=== PATIENT | male | born 1955 | race Caucasian/White ===

== ENCOUNTER 2025-06-06 11:38 | Inpatient (IN) | payer MEDICARE ==
[~2025-06-06] VITALS: Ht 185.4 cm; Wt 118.2 kg
[2025-06-06] MEDS ORDERED: ONDANSETRON HCL/PF 4 MG/2 ML VIAL ONE (11:52)
[2025-06-06] MEDS ORDERED: MORPHINE SULFATE INJ 4 MG/ML DISP.SYRIN ONE (11:52)
[2025-06-06] MEDS: MORPHINE SULFATE INJ 2 MG/ML DISP.SYRIN IV ONE (11:57)
[2025-06-06] MEDS: ONDANSETRON HCL/PF 4 MG/2 ML VIAL IVP ONE (12:26)
[2025-06-06] MEDS ORDERED: FENTANYL PF 100MCG/2ML AMPUL ONE (12:44)
[2025-06-06] MEDS: FENTANYL PF 100MCG/2ML AMPUL IV ONE (12:55)
[2025-06-06] MEDS: PROPOFOL 200 MG/20 ML VIAL IV ONE ×2 (13:52→13:55)
[2025-06-06] MEDS: KETAMINE HCL (500MG/10ML) 50 MG/ML VIAL IV ONE (14:04)
[2025-06-06 15:16] LABS: PLATELET COUNT (AUTO) 223 K/uL (150-450); RED BLOOD CELL COUNT(AUTO) 5.25 MIL/uL (4.5-6.0); RED CELL DISTRIBUTION WIDTH 13.4 % (11.5-15.0); WHITE BLOOD COUNT (AUTO) 16.0 K/uL (4.3-11.0)
[2025-06-06 15:20] LABS: CALCIUM, SERUM 9.0 mg/dL (8.5-10.1); CREATININE 1.2 mg/dL (0.6-1.3); SODIUM SERUM 142.0 mmol/L (136-145); UREA NITROGEN, BLOOD 20.0 mg/dL (7-18)
[2025-06-06 15:30] LABS: INR 1.02 (0.91-1.10)
[2025-06-06] MEDS ORDERED: ACETAMINOPHEN 325 MG TABLET PO PRN (16:30)
[2025-06-06] MEDS ORDERED: ONDANSETRON HCL/PF 4 MG/2 ML VIAL IVP PRN (16:30)
[2025-06-06] MEDS ORDERED: MAGNESIUM HYDROXIDE 30 ML UDC PO PRN (16:30)
[2025-06-06] MEDS ORDERED: MAG HYDROX/AL HYDROX/SIMETH 30 ML UDC PO PRN (16:30)
[2025-06-06] MEDS: HYDROCODONE/APAP 5/325MG TABLET PO ONE (16:45)
[2025-06-06] MEDS ORDERED: MIRT-121 PO (17:55)
[2025-06-06] MEDS ORDERED: NARA2.5T2 PO (17:55)
[2025-06-06] MEDS ORDERED: PREG300C PO (17:55)
[2025-06-06] MEDS ORDERED: PANT40TA2 PO (17:55)
[2025-06-06] MEDS ORDERED: QUET50TA PO (17:55)
[2025-06-06] MEDS ORDERED: ATOR40TA (17:55)
[2025-06-06] MEDS ORDERED: OXYC15TA2 PO (17:55)
[2025-06-06] MEDS ORDERED: FLUO60SO2 EACH EAR (17:55)
[2025-06-06] MEDS ORDERED: LOSA25TA27 PO (17:55)
[2025-06-06] MEDS ORDERED: BUDE10.2 IH (17:55)
[2025-06-06] MEDS ORDERED: TIOT4MIS3 IH (17:55)
[2025-06-06] MEDS ORDERED: BUSP30TA2 PO (17:55)
[2025-06-06] MEDS ORDERED: ALBU18HF2 IH (17:55)
[2025-06-06] MEDS ORDERED: PRISTIQ PO (17:55)
[2025-06-06] MEDS: IV D5/0.45 NACL 1,000 ML IV SCH (18:04)
[2025-06-06] MEDS: HYDROMORPHONE 1 MG/1 ML DISP.SYRIN IV PRN (18:05)
[2025-06-06 20:00] VITALS: BP 146/96; TEMP 98.4; O2SAT 97
[2025-06-06 20:43] VITALS: BP 146/96; TEMP 98.4; O2SAT 97
[2025-06-07] VITALS (15 sets, daily range): BP systolic 124–158; BP diastolic 77–100; TEMP 97.7–99; O2SAT 94–98
[2025-06-07 06:39] LABS: ASPARTATE AMINOTRANSFERASE 49.0 U/L (15-37); CALCIUM, SERUM 8.5 mg/dL (8.5-10.1); CREATININE 1.1 mg/dL (0.6-1.3); PHOSPHORUS 4.3 mg/dL (2.5-4.9); SODIUM SERUM 139.0 mmol/L (136-145); TOTAL PROTEIN, SERUM 6.6 g/dL (6.4-8.2); UREA NITROGEN, BLOOD 14.0 mg/dL (7-18)
[2025-06-07 06:40] LABS: PLATELET COUNT (AUTO) 180 K/uL (150-450); RED BLOOD CELL COUNT(AUTO) 5.10 MIL/uL (4.5-6.0); RED CELL DISTRIBUTION WIDTH 13.3 % (11.5-15.0); WHITE BLOOD COUNT (AUTO) 10.2 K/uL (4.3-11.0)
[2025-06-07 06:46] LABS: LDL 69.0 mg/dL (0-99)
[2025-06-07 06:50] LABS: INR 1.04 (0.91-1.10)
[2025-06-07] MEDS: PANTOPRAZOLE 40 MG VIAL IV SCH (08:11)
[2025-06-07] MEDS ORDERED: ALBUTEROL FS 2.5 MG/3 ML VIAL.NEB NEB PRN (11:30)
[2025-06-07] MEDS ORDERED: NARATRIPTAN HCL 2.5 MG PO PRN (11:30)
[2025-06-07] MEDS ORDERED: oxyCODONE IR immediate release 5 MG TABLET PO PRN (11:30)
[2025-06-07] MEDS ORDERED: FENTANYL PF 100MCG/2ML AMPUL ONE ×2 (14:25→14:26)
[2025-06-07] MEDS ORDERED: ROCURONIUM BROMIDE 50 MG/5 ML ONE (14:26)
[2025-06-07] MEDS ORDERED: TRANEXAMIC ACID 1,000 MG/10 ML VIAL ONE (15:38)
[2025-06-07] MEDS ORDERED: BUPIVACAINE 0.5 % PF 150 MG/30 ML VIAL ONE (16:04)
[2025-06-07] MEDS ORDERED: SUGAMMADEX SODIUM 200 MG/2 ML VIAL IV ONE (16:19)
[2025-06-07] MEDS ORDERED: PANTOPRAZOLE 40 MG TABLET.DR PO SCH (17:00)
[2025-06-07] MEDS: PREGABALIN 100 MG CAPSULE PO SCH (17:45)
[2025-06-07] MEDS: ALBUTEROL FS 2.5 MG/3 ML VIAL.NEB NEB SCH (20:15)
[2025-06-07] MEDS: MIRTAZAPINE 15 MG TABLET PO SCH (22:07)
[2025-06-07] MEDS: QUETIAPINE FUMARATE 25 MG TABLET PO SCH (22:07)
[2025-06-07] MEDS: ATORVASTATIN 40 MG TABLET PO SCH (22:07)
[2025-06-07] MEDS: CEFAZOLIN 2 GM in IV D5W 100 ML IV SCH (22:08)
[2025-06-07] MEDS: IV D5/0.45 NACL 1,000 ML IV PRN (22:21)
[2025-06-08] VITALS (9 sets, daily range): BP systolic 123–136; BP diastolic 87–90; TEMP 98.4–99.3; O2SAT 93–99
[2025-06-08] MEDS: MORPHINE SULFATE INJ 4 MG/ML DISP.SYRIN IV PRN (00:43)
[2025-06-08 07:03] LABS: PLATELET COUNT (AUTO) 171 K/uL (150-450); RED BLOOD CELL COUNT(AUTO) 4.70 MIL/uL (4.5-6.0); RED CELL DISTRIBUTION WIDTH 13.4 % (11.5-15.0); WHITE BLOOD COUNT (AUTO) 12.2 K/uL (4.3-11.0)
[2025-06-08 07:21] LABS: CALCIUM, SERUM 8.2 mg/dL (8.5-10.1); CREATININE 1.2 mg/dL (0.6-1.3); SODIUM SERUM 142.0 mmol/L (136-145); UREA NITROGEN, BLOOD 12.0 mg/dL (7-18)
[2025-06-08 07:22] LABS: PHOSPHORUS 2.8 mg/dL (2.5-4.9)
[2025-06-08] MEDS: BUDESONIDE RESPULE INH 0.5 MG/2 ML AMPUL.NEB NEB SCH (07:39)
[2025-06-08] MEDS ORDERED: FLUOCINOLONE 0.01% TP SCH (09:00)
[2025-06-08] MEDS: LOSARTAN POTASSIUM 25 MG TABLET PO SCH (09:17)
[2025-06-08] MEDS ORDERED: oxyCODONE IR immediate release 5 MG TABLET PO PRN (12:00)
[2025-06-08] MEDS: MELOXICAM 7.5 MG TABLET PO SCH (12:15)
[2025-06-08] MEDS: ENOXAPARIN SODIUM 40 MG/0.4 ML DISP.SYRIN SQ SCH (20:18)
[2025-06-09 01:45] VITALS: O2SAT 95
[2025-06-09 01:55] VITALS: O2SAT 99
[2025-06-09 06:00] LABS: PLATELET COUNT (AUTO) 165 K/uL (150-450); RED BLOOD CELL COUNT(AUTO) 4.71 MIL/uL (4.5-6.0); RED CELL DISTRIBUTION WIDTH 13.2 % (11.5-15.0); WHITE BLOOD COUNT (AUTO) 9.5 K/uL (4.3-11.0)
[2025-06-09 06:06] LABS: CALCIUM, SERUM 8.4 mg/dL (8.5-10.1); CREATININE 0.9 mg/dL (0.6-1.3); PHOSPHORUS 2.5 mg/dL (2.5-4.9); SODIUM SERUM 142.0 mmol/L (136-145); UREA NITROGEN, BLOOD 12.0 mg/dL (7-18)
[2025-06-09 06:56] LABS: EOSINOPHILS % (MANUAL) 2 % (0-4); LYMPHOCYTES % (MANUAL) 12 % (16-48); MONOCYTES % (MANUAL) 15 % (0-11.0); NEUTROPHILS % (MANUAL) 71 (42-76); PLATELET ESTIMATE ADEQUATE
[2025-06-09 08:00] VITALS: BP 122/85; TEMP 98.2; O2SAT 94
[2025-06-09 08:04] VITALS: O2SAT 96
[2025-06-09 08:19] VITALS: O2SAT 99
[2025-06-09] MEDS ORDERED: MELO7.5T12 PO (09:24)
[2025-06-09 09:53] VITALS: BP 122/85
[2025-06-09] MEDS: PANTOPRAZOLE 40 MG TABLET.DR PO SCH (09:53)
== END 2025-06-09 14:16 | disposition home or self-care (01) | DRG 468 ==
LOC: ER 11:43 → TELE 17:05 → MED 06-07 11:11
PROVIDERS: ATTEND Nurse Practitioner Family
PROC: 0SWBXJZ Revision of Synthetic Substitute in Left Hip Joint, External Approach (ICD-10-PCS; principal; 2025-06-06)
PROC: 0SWB0JZ Revision of Synthetic Substitute in Left Hip Joint, Open Approach (ICD-10-PCS; 2025-06-07)
DX: T84.021A Dislocation of internal left hip prosthesis, initial encounter (principal); Y79.2 Prosthetic and other implants, materials and accessory orthopedic devices associated with adverse incidents; F03.90 Unspecified dementia, unspecified severity, without behavioral disturbance, psychotic disturbance, mood disturbance, and anxiety; E66.9 Obesity, unspecified; I25.10 Atherosclerotic heart disease of native coronary artery without angina pectoris; Z98.1 Arthrodesis status; Z96.652 Presence of left artificial knee joint; I10 Essential (primary) hypertension; D72.829 Elevated white blood cell count, unspecified; Z68.34 Body mass index [BMI] 34.0-34.9, adult; Y83.8 Other surgical procedures as the cause of abnormal reaction of the patient, or of later complication, without mention of misadventure at the time of the procedure; Y92.009 Unspecified place in unspecified non-institutional (private) residence as the place of occurrence of the external cause
CPT/HCPCS: 36415; 71045-TC; 73502; 73700-TC; 80048-TC; 80053-TC; 80061-TC; 83735-TC; 84100-TC; 84443-TC; 85025-TC; 85027-TC; 85730-TC; 86850-TC; 87081-TC; 93307-TC; 94760-TC; 94799-TC; 97110-TC; 97116-TC; 97530-TC; 97535-TC; A4217; A4223; A6209; G0378; J0690; J1100; J1171; J1650; J2270; J2405; J2470; J2704; J3010; J3490; J7030; J7060; L1830